=== PATIENT | female | born 1935 | race Two or more races ===

== ENCOUNTER 2024-11-05 19:38 | Emergency (ER) | payer OTHER ==
[~2024-11-05] VITALS: Ht 154.9 cm; Wt 52.1 kg
[2024-11-05 20:36] VITALS: BP 157/68; PULSE 74; RESP 17; O2SAT 95
[2024-11-05] MEDS ORDERED: ACETAMINOPHEN 325 MG TAB PO ONE (21:00)
--- NOTE | 2024-11-05 21:40 | DVH ---
EXAM: CT HEAD WITHOUT CONTRAST INDICATION: fall TECHNIQUE: CT of the head without intravenous contrast. Radiation Dose Information: CT Dose: CTDI volume is 49.17 mGy. Dose-length product is 794.0 mGy*cm The dose indicators for CT are the volume Computed Tomography (CT) Dose Index (CTDIvol) and the Dose Length Product (DLP), and are measured in units of mGy and mGy-cm, respectively. These indicators are not patient dose, but values generated from the CT scanner acquisition factors. The report includes radiation exposure data for exposures received during this examination. COMPARISON: None FINDINGS: There is no evidence of acute intracranial hemorrhage, extra-axial collection, mass effect, midline s hift, herniation or hydrocephalus. The ventricles, sulci and cisterns are age appropriate. The collins-white differentiation is intact. Patchy periventricular and subcortical white matter hypoattenuation is nonspecific but may be related to small vessel ischemic disease. The visualized paranasal sinuses and mastoid air cells are clear. The surrounding soft tissues and osseous structures are unremarkable. IMPRESSION: 1. No acute intracranial hemorrhage 2. No CT findings territorial ischemia. 3. No CT findings of displaced skull fracture
--- NOTE | 2024-11-05 21:46 | DVH ---
EXAM: CT CERVICAL WITHOUT CONTRAST INDICATION: FALL EXAM DATE: 11/05/2024 09:07 PM COMPARISON: None TECHNIQUE: CT of the cervical spine without intravenous contrast. Radiation Dose Information: CT Dose: CTDI volume is 10.2 mGy. Dose-length product is 282.6 mGy*cm FINDINGS: The cervical alignment is intact. No acute cervical spine fracture is identified. The vertebral bod y heights are intact. No suspicious osseous lesions are identified. The craniocervical junction duane ears intact. Moderate degenerative changes are identified. There is no prevertebral soft tissue swe lling. Biapical lungs are clear. No acute soft tissue abnormalities. IMPRESSION: No evidence of acute cervical spine fracture or malalignment. END IMPRESSION:
--- NOTE | 2024-11-05 21:54 | ED.PDOC ---
History of Present Illness HPI Comments 89F who had a mechanical fall earlier today and struck the front of her head. She did not lose consciousness, does not take blood thinners, and was able to get up afterwards. She denies fever chills nausea vomiting diarrhea dysuria or polyuria. She went to urgent care and was told that she should come here for a head CT. Chief Complaint: Fall Injury Time Seen by MD: 20:43 Reviewed Notes: Nurses Notes Allergies: Coded Allergies: NO KNOWN ALLERGIES (Unverified , 11/05/24) Information Source: Patient Mode of Arrival: Ambulatory All Other Systems: Reviewed and Negative Physical Exam General Appearance: No Apparent Distress, Normal HEENT: Normal ENT Inspection, Pharynx Normal, TMs Normal Neck: Full Range of Motion, Non-Tender, Normal, Normal Inspection Respiratory: Chest Non-Tender, Lungs Clear, No Accessory Muscle Use, No Respiratory Distress, Normal Breath Sounds Cardiovascular: No Edema, No JVD, No Murmur, No Gallop, Normal Peripheral Pulses, Regular Rate/Rhythm Breast Exam: Deferred Gastrointestinal: No Organomegaly, Non Tender, No Pulsatile Mass, Normal Bowel Sounds, Soft Genitalia: Deferred Pelvic: Deferred Rectal: Deferred Extremities: No calf tenderness, Normal capillary refill, Normal inspection, Normal range of motion, Non-tender, No pedal edema Musculoskeletal : Apperance: Normal Neurologic: Alert, motel 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 Was a procedure done?: No Differential Dx Considerations may include: Intracranial bleed, migraine, tension headache, concussion X-Ray, Labs, Meds, VS Vital Signs Date Time Temp Pulse Resp B/P (MAP) Pulse Ox O2 Delivery O2 Flow Rate FiO2 11/05/24 20:36 97.7 74 17 157/68 (97) 95 Time of 1ST Reevaluation: 21:53 Reevaluation 1ST: Improved Patient Education/Counseling: Diagnosis, Treatment Family Education/Counseling: Diagnosis, Treatment Departure 1 Departure Time of Disposition: 21:53 (Patient's workup is benign we will discharge patient with outpatient follow up) Impression: Primary Impression: Fall Qualified Codes: W19.XXXA - Unspecified fall, initial encounter Additional Impressions: Tension headache Abrasion Disposition: HOME / SELF CARE / HOMELESS Condition: Stable Additional Instructions: You fell today. Fortunately you were not seriously injured. Your workup today was benign. You may be more sore than normal for the next few days. For pain you can take the followinam: Ibuprofen 400mg with food Noon: Acetaminophen 1000mg 4pm: Ibuprofen 400mg with food 8pm: Acetaminophen 1000mg You should follow up with your regular doctor within one week. If your symptoms worsen or you have any other concerns then please return to the emergency room. Discharged With: Self Critical Care Note Critical Care Time?: No Stability Stability form required: JESUS Liu MD Nov 05, 2024 21:54
== END 2024-11-06 04:34 | disposition home or self-care (01) ==
LOC: ER 19:38
DX: S00.81XA Abrasion of other part of head, initial encounter (principal); G44.209 Tension-type headache, unspecified, not intractable; W18.39XA Other fall on same level, initial encounter; Y93.89 Activity, other specified; Y92.89 Other specified places as the place of occurrence of the external cause; Y99.8 Other external cause status
CPT/HCPCS: 70450; 72125